=== PATIENT | male | born 1990 | race Hispanic/Latino ===

== ENCOUNTER 2020-06-20 10:57 | Day surgery (SDC) | payer BC ==
[2020-06-15 10:11] LABS: BASOPHILS % (AUTO) 1.1 % (0.0-5.0); EOSINOPHILS % (AUTO) 2.5 % (0.0-8.0); LYMPHOCYTES % (AUTO) 29.4 % (21.0-51.0); MEAN CORPUSCULAR HEMOGLOBIN 29.1 pg (27.0-33.0); MEAN CORPUSCULAR HGB CONC 34.2 g/dL (32.0-36.0); MEAN CORPUSCULAR VOLUME 85.1 fL (79-99); MONOCYTES % (AUTO) 7.4 % (3.0-13.0); NEUTROPHILS % (AUTO) 59.3 % (40.0-77.0); PLATELET COUNT (AUTO) 172 K/uL (130-400); RED BLOOD CELL COUNT(AUTO) 5.64 MIL/uL (4.50-6.20); RED CELL DISTRIBUTION WIDTH 12.9 % (11.0-15.5); WHITE BLOOD COUNT (AUTO) 7.2 K/uL (4.8-10.8)
[2020-06-15 10:26] LABS: ALBUMIN 3.7 g/dL (3.5-5.0); BILIRUBIN,TOTAL 0.4 mg/dL (0.2-1.0); CREATININE 1.1 mg/dL (0.5-1.5); POTASSIUM 3.9 mmol/L (3.5-5.1); TOTAL PROTEIN, SERUM 7.7 g/dL (6.0-8.3)
[2020-06-19 12:31] VITALS: BP 152/80
[~2020-06-20] VITALS: Ht 167.6 cm; Wt 103.1 kg
[2020-06-20] VITALS (18 sets, daily range): BP systolic 104–130; BP diastolic 46–78
[2020-06-20] MEDS ORDERED: LACTATED RINGERS 1000ML 1,000 ML IV ONE (11:09)
[2020-06-20] MEDS ORDERED: BUPIVACAINE/PF 0.5% 30ML VIAL ONE (12:14)
[2020-06-20] MEDS ORDERED: MIDAZOLAM HCL 1 MG/ML 2ML VIAL ONE (13:09)
[2020-06-20] MEDS ORDERED: PROPOFOL 10 MG/ML 20ML VIAL IV ONE (13:09)
[2020-06-20] MEDS ORDERED: SUCCINYLCHOLINE 200MG/10ML SYR ONE (13:09)
[2020-06-20] MEDS ORDERED: FENTANYL CITRATE PF 50 MCG/1 ML 2ML VIAL ONE ×2 (13:10→13:35)
[2020-06-20] MEDS ORDERED: CEFAZOLIN SODIUM 1 GM VIAL ONE ×2 (13:22)
== END 2020-06-20 16:00 | disposition home or self-care (01) ==
LOC: DAH 10:57
PROVIDERS: ATTEND Student in an Organized Health Care Education/Training Program
DX: D17.0 Benign lipomatous neoplasm of skin and subcutaneous tissue of head, face and neck (principal); E66.9 Obesity, unspecified; E55.9 Vitamin D deficiency, unspecified; E78.5 Hyperlipidemia, unspecified; Z79.899 Other long term (current) drug therapy; Z20.828 Contact with and (suspected) exposure to other viral communicable diseases
CPT/HCPCS: 21554; 36415; 80053; 85025; A4215; A4221; A4222; A4223; A4452; A4649; A4663; A4930; A6260; C9803; G0168; J0330; J0690 ×2; J2250; J2704; J3010 ×2; J3490; J7120; U0003